=== PATIENT | female | born 1960 | race Caucasian/White ===

== ENCOUNTER → 2020-07-24 | Outpatient (CLI) | payer BC ==
--- NOTE | 2020-07-24 16:33 | KCIC ---
Five-view lumbar spine series Clinical indications: Low back pain status post fall 2 weeks ago. History of Oneal nicki. FINDINGS: No compression fracture or discitis or lytic process is evident. There is minimal retrolisthesis of L2 on L3 and associated moderate disc space narrowing and degenerative endplate spurring. There is more prominent retrolisthesis of L3 and L4 measuring 11 mm with moderate degenerative disc space narrowing and mild degenerative endplate spurring. Grade 1 anterolisthesis of L4-5 is seen measuring 7 mm. There is mild degenerative disc space narrowing and endplate spurring at this level. The L5-S1 disc space is partially fused. The transverse processes are intact. Mild levoscoliosis is seen which extends into the lower thoracic spine. Oneal nicki is seen extending from the thoracic spine into the upper lumbar spine to the L2 level. There is interspinous fusion between L3 and L4 and L4 and L5. No spondylolysis is seen. Facet arthropathy is seen at L3-4 and L4-5 and L5-S1. L4-5 and L5-S1 facet joints are poorly visualized and may be partially fused. IMPRESSION: No acute compression fracture. Lumbar spine abnormalities as discussed above. There is an ill-defined calcification with question of a soft tissue nodule of the left mid abdomen overlying the left renal shadow. This may be further evaluated with abdomen CT and IV contrast. Electronically signed by: Kenan Silva MD (07/24/2020 4:31 PM) [id number]
== END ==
LOC: KCIC 14:52
PROVIDERS: ATTEND Chiropractor
DX: M47.817 Spondylosis without myelopathy or radiculopathy, lumbosacral region (principal); M48.061 Spinal stenosis, lumbar region without neurogenic claudication; M43.16 Spondylolisthesis, lumbar region
CPT/HCPCS: 72110